=== PATIENT | male | born 1975 | race Caucasian/White ===

== ENCOUNTER 2016-12-22 22:17 | Emergency (ER) | payer BC, OTHER ==
[2016-12-22] MEDS ORDERED: DEXAMETHASONE SOD PHOSPHATE 10 MG/ML VIAL IV ONE (23:28)
[2016-12-22] MEDS ORDERED: ACETAMINOPHEN 500 MG TABLET PO ONE (23:28)
[2016-12-22] MEDS ORDERED: DEXAMETHASONE SOD PHOSPHATE 10 MG/ML VIAL ONE (23:35)
[2016-12-22] MEDS ORDERED: DEXAMETHASONE SOD PHOSPHATE 10 MG/ML VIAL IM ONE (23:40)
[2016-12-22 23:44] VITALS: BP 146/78
--- NOTE | 2016-12-22 23:51 | ERNOTE ---
Back Pain ER HPI Date of Service: 12/22/16 Presenting Symptoms: injury/pain to back Time Seen by Provider: 12/22/16 22:55 Source: patient Exam Limitations: no limitations Immunizations: IMMUNIZATION HX Immunizations Up to Date Yes Allergies/Adverse Reactions: Allergies No Known Allergies Allergy (Unverified 12/22/16 22:35) Home Medications: HOME MEDICATIONS Cyclobenzaprine HCl [Flexeril] 10 mg PO TID PRN #30 tablet 12/22/16 [Last Taken Unknown] Gabapentin [Neurontin] 100 mg PO TID #30 cap 12/22/16 [Last Taken Unknown] Lidocaine [Lidoderm 5%] 1 patch TP DAILY PRN #15 patch 12/22/16 [Last Taken Unknown] Naproxen [Naprosyn] 500 mg PO BID PRN #20 tablet 12/22/16 [Last Taken Unknown] Narrative: 41 year old that has been having lower back pain for many years. Today the pain has increased and he took 1200 mg of Ibuprofen. Denies any weakness, numbness or tingling in the lower extremities. No complaints of urinary retention. Date (Duration): 12/22/16 Time (Timing): 23:55 Timing: Reports: constant Quality/Severity: Reports: moderate Location of pain: Reports: lower back Recent Injury?: Reports: no Possible Precipitating Factor: Reports: none Modifying Factors - (Improves): Reports: other - nothing Modifying Factors - (Worsens): Reports: other - movement Associated Symptoms: Denies: constipation/incontinence, numbess/weakness in legs Prior Treament: Reports: similar symptoms before Review of Systems - Review of Systems Constitutional: Present: no symptoms reported EYE: Present: no symptoms reported ENT: Present: no symptoms reported Respiratory: Present: no symptoms reported Cardiology: Present: no symptoms reported Gastrointestinal/Abdominal: Present: no symptoms reported Genitourinary: Present: no symptoms reported Musculoskeletal: Present: no symptoms reported Skin: Present: no symptoms reported Neurological: Present: no symptoms reported Endocrine: Present: no symptoms reported Hematologic/Lymphatic: Present: no symptoms reported Psych: Present: no symptoms reported - Social History Living Situations: home Psych History: No pertinent hx Smoking Status: Former smoker - Immunizations Immunizations Up to Date: Yes Physical Exam - Physical Exam Narrative: Morbidly obese General Appearance: Present: no apparent distress Head Exam: Present: normal inspection Eye Exam: Normal inspection: bilateral Ears, Nose, Throat: Present: normal ENT inspection Neck: Present: normal inspection Respiratory: Present: no respiratory distress, normal breath sounds Cardiovascular/Chest: Present: regular rate, rhythm Gastrointestinal/Abdominal: Present: nondistended Back Exam: Present: normal inspection, vertebral tenderness - minimal at the L5- S1 area, other Extremity Exam: Present: normal inspection Neurological Exam: Present: alert, oriented, normal mood/affect Skin Exam: Present: normal color ED Progress - Vital Signs Patient's Vital Signs:: I have reviewed the patient's vital signs. Vital Signs: Vital Signs 12/22/16 22:32 Temperature 37 C Pulse Rate 94 Respiratory 14 Rate Blood Pressure 154/84 O2 Sat by Pulse 97 Oximetry - Progress/Reassessment Chief Complaint: Back Pain Progress:: Unchanged Departure Clinical Impression: Chronic back pain - Departure Disposition: Home self-care Condition: Fair Instructions: Back Pain, Adult Print Language: Kenyan Additional Instructions: Loosing weight will help with reducing the back pain. See your doctor. Referrals: Dada Urbina MD [Primary Care Provider] - Prescriptions: Cyclobenzaprine HCl [Flexeril] 10 mg PO TID PRN #30 tablet PRN Reason: Pain Gabapentin [Neurontin] 100 mg PO TID #30 cap Lidocaine [Lidoderm 5%] 1 patch TP DAILY PRN #15 patch PRN Reason: Pain Naproxen [Naprosyn] 500 mg PO BID PRN #20 tablet PRN Reason: Pain
[2016-12-23] MEDS ORDERED: LIDOCAINE 1 PATCH ADH..PATCH TP ONE
== END 2016-12-23 00:15 | disposition home or self-care (01) ==
LOC: ER 22:17
DX: M54.9 Dorsalgia, unspecified (principal); G89.29 Other chronic pain

== ENCOUNTER 2018-11-21 01:09 | Observation (INO) ==
[2018-11-21] MEDS ORDERED: NITROGLYCERIN 0.4 MG/TAB BTL SL ONE (01:22)
[2018-11-21] MEDS ORDERED: ASPIRIN 81 MG TAB.CHEW PO ONE (01:22)
--- NOTE | 2018-11-21 01:26 | ERNOTE ---
Chest Pain/Cardiac HPI Date of Service: 11/21/18 Chief Complaint: Chest Pain Time Seen by Provider: 11/21/18 01:16 Source: patient Immunizations: IMMUNIZATION HX Immunizations Up to Date Yes History of Influenza Vaccine No Hx Pneumococcal Vaccination No Allergies/Adverse Reactions: Allergies No Known Allergies Allergy (Verified 02/17/18 13:33) Home Medications: HOME MEDICATIONS alprazolam 0.25 mg tablet 0.25 mg PO TID PRN tab 10/07/17 [Last Taken Unknown] Narrative: This is a 43-year-old gentleman who comes to the emergency department around 1 AM complaining of left-sided chest pain. The pain is been there for 2 to 3 days . The patient reports he was feeling a bit diaphoretic and clammy earlier today. His pain was bothering to the point where he finally told his and his said he needed to come to the hospital right away. The patient has had no nausea or vomiting. He does say that he is been having a little bit of shortness of breath. The pain comes on or gets worse when he exerts himself and gets better with rest. The patient denies any radiation to the arm neck back or jaw. The patient says he had no coughing or fever. Review of Systems - Review of Systems Constitutional: Present: no symptoms reported EYE: Present: no symptoms reported ENT: Present: no symptoms reported Respiratory: Present: no symptoms reported Cardiology: Present: chest pain Gastrointestinal/Abdominal: Present: no symptoms reported Genitourinary: Present: no symptoms reported Musculoskeletal: Present: no symptoms reported Skin: Present: no symptoms reported Neurological: Present: no symptoms reported Endocrine: Present: no symptoms reported Hematologic/Lymphatic: Present: no symptoms reported Psych: Present: no symptoms reported All Other Systems: All systems neg except as marked Medical History (Updated 10/18/17 @ 11:10 by Dada Urbina MD) LARA (obstructive sleep apnea) (Chronic) Depression (Chronic) Anxiety disorder (Chronic) Allergic rhinitis (Chronic) Obesity Surgical History: Surgical History (Updated 10/07/17 @ 14:03 by Armida Rivas RN) No pertinent past surgical history Family History: Family History (Updated 10/07/17 @ 14:04 by Armida Rivas RN) Brother Hypertension Diabetes Obesity Father Heart disease Diabetes Hypertension CVA (cerebral vascular accident) Mother Alive and well Social History: (Last Reviewed 11/21/18 @ 01:21 by Malka Esteban RN) Social History: current occupational status: employed 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 Service: No Tobacco: Smoking Status: Never smoker Alcohol: alcohol intake: current Substance Use: substance use type: does not use Dietary Habits: caffeine: Yes Physical Exam - Physical Exam General Appearance: Present: wd/wn, alert, no apparent distress Head Exam: Present: normal inspection, no evidence of injury Eye Exam: Normal inspection: bilateral, PERRL: bilateral, EOMI: bilateral Ears, Nose, Throat: Present: normal ENT inspection, normal pharynx Neck: Present: normal inspection, nontender Respiratory: Present: no respiratory distress, normal breath sounds, chest nontender, lungs clear Cardiovascular/Chest: Present: regular rate, rhythm, no murmur Gastrointestinal/Abdominal: Present: normal bowel sounds, nontender, nondistended, soft Back Exam: Present: normal inspection, normal range of motion, no CVA tenderness Extremity Exam: Present: normal inspection, non-tender, normal range of motion, no edema Neurological Exam: Present: alert, oriented, normal mood/affect, no motor/sensory deficits Skin Exam: Present: normal color, warm/dry Lymphatic Exam: Present: no adenopathy Progress - Results and Orders Patient's Lab Results:: I have reviewed the patient's lab results. - Vital Signs Patient's Vital Signs:: I have reviewed the patient's vital signs. Vital Signs: Vital Signs 11/21/18 01:14 Temperature 36.5 C Pulse Rate 104 H Respiratory Rate 18 Blood Pressure 201/87 H O2 Sat by Pulse Oximetry 98 - EKG EKG #1 EKG: NSR EKG read: Interp. by me EKG Comments: EKG demonstrates sinus rhythm ventricular rate of 99, normal axis, normal intervals, no ST elevation, T waves have normal direction and morphology. There may be a biphasic T wave in lead III - X-Ray X-Ray #1 X-Ray: chest Interpretation: Interp. by me X-ray Comments: Mild cardiomegaly no acute cardiopulmonary disease - Progress/Reassessment Chief Complaint: Chest Pain Plan - Plan Plan: Patient's chest pain went away with sublingual nitro we will place him on Nitropaste. His symptoms have been coming and going, only present for a couple of hours this evening, but do seem to come on with exertion and get better with rest. Although his first set of enzymes and EKG are reassuring I think he needs to have repeat enzymes and stress testing. He is excepted this and will stay in the hospital Departure Clinical Impression: Chest pain Qualifiers: Chest pain type: unspecified Qualified Code(s): R07.9 - Chest pain, unspecified - Departure Disposition: Still a patient Condition: Stable Referrals: Dada Urbina MD [Primary Care Provider] -
[2018-11-21 01:42] LABS: Hemoglobin 13.3 gm/dL (13.5-18.0); Mean Cell Volume 86.6 fl (78-100); Mean Corpuscular Hemoglobin 28.8 pg (27-31); Mean Corpuscular Hgb Conc 33.3 g/dl (32-36); Mean Platelet Volume 9.2 fl (8-11.3); Neutrophil # 3.2 K/mm3 (1.3-6.0); Neutrophil % 55.9 % (42-75.0); Platelet Count 222 K/mm3 (150-450); Red Blood Count 4.62 M/mm3 (4.7-6.0); Red Cell Distribution Width 13.3 % (11.5-14.0); White Blood Count 5.7 K/mm3 (4.0-10.5)
[2018-11-21 02:03] LABS: ALT 32 U/L (19-67); Albumin * 3.5 gm/dl (3.4-5.0); Alkaline Phosphatase * 61 U/L (50-170); Anion Gap 16.3 mmol/L (6.8-13.8); BUN/Creatinine Ratio 13.1 (9.0-21.6); Bilirubin, Total 0.2 mg/dL (0.0-1.1); Blood Urea Nitrogen 17 mg/dL (6-23); Ca. Corrected For Albumin 8.5 mg/dL (8.4-10.2); Calcium * 8.4 mg/dL (7.9-10.9); Carbon Dioxide 23.8 mmol/L (24-32.6); Chloride 111 mmol/L (97-106); Glucose * 134 mg/dL (70-110); Potassium 4.1 mmol/L (3.4-4.6); Sodium 147 mmol/L (132-142); Total Protein 6.9 gm/dL (6.2-8.2)
[2018-11-21 02:11] LABS: Troponin I Less than 0.017 ng/mL (0.00-0.10)
[2018-11-21] MEDS ORDERED: NITROGLYCERIN 1 INCH PACKET TD ONE (02:30)
[2018-11-21 02:42] LABS: AST 13 U/L (0-48)
[2018-11-21] MEDS ORDERED: ACETAMINOPHEN 325 MG TABLET PO PRN (07:07)
--- NOTE | 2018-11-21 10:30 | HPDIS ---
Chief Complaint - Chief Complaint Date of Service: 11/21/18 Time of Service: 10:08 Chief Complaint: I had chest pain yesterday History of Present Illness: 43-year-old male with past medical history of general anxiety disorder, depression, obesity, obstructive sleep apnea, was evaluated in our ER due to left-sided retrosternal chest pain accompanied by diaphoresis and mild shortness of breath that started 2 to 3 days ago while in his home. Patient described exertion as aggravating factors and says that his pain improves at rest. He admits to being short of breath lately but has never been diagnosed with any cardiac diseases. Patient is currently doctoring with Dr. Urbina. Medical History (Updated 11/21/18 @ 02:30 by Royce Arboleda MD) LARA (obstructive sleep apnea) (Chronic) Depression (Chronic) Anxiety disorder (Chronic) Allergic rhinitis (Chronic) Obesity Surgical History: Surgical History (Updated 10/07/17 @ 14:03 by Armida Rivas RN) No pertinent past surgical history Family History: Family History (Updated 10/07/17 @ 14:04 by Armida Rivas RN) Brother Hypertension Diabetes Obesity Father Heart disease Diabetes Hypertension CVA (cerebral vascular accident) Mother Alive and well Social History: (Last Reviewed 11/21/18 @ 03:48 by Braxton Faustin RN) Social History: current occupational status: employed 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 Service: No Tobacco: Smoking Status: Never smoker Alcohol: alcohol intake: current Substance Use: substance use type: does not use Dietary Habits: caffeine: Yes Peds Patient Hx - Developmental: No Pertinent Hx Peds Patient Hx - Medical: No Pertinent Hx Peds Patient Hx - Cardiac/Respiratory: No Pertinent Hx Peds Patient Hx - Surgical: No Surgical History Patient History - Cancer: No Hx of Cancer Review Of Systems (GEN) - Review of Systems Generalized/Overall Review: Present: No Symptoms Reported EENTM: Present: No Symptoms Reported Respiratory: Present: Shortness of Breath Cardiac: Present: Chest Pain Abdominal: Present: No Symptoms Reported Genitourinary: Present: No Symptoms Reported Musculoskeletal: Present: No Symptoms Reported Neurological: Present: No Symptoms Reported Skin: Present: No Symptoms Reported Endocrine: Present: No Symptoms Reported Immunizations: IMMUNIZATION HX Immunizations Up to Date Yes History of Influenza Vaccine No Hx Pneumococcal Vaccination No Allergies/Adverse Reactions: Allergies Allergy/AdvReac Type Severity Reaction Status Date / Time No Known Allergies Allergy Verified 11/21/18 03:48 Home Medications: HOME MEDICATIONS alprazolam 0.25 mg tablet 0.25 mg PO TID PRN tab 10/07/17 [Last Taken Unknown] Exam - Exam Vital Signs: Vital Signs - Last Taken Temp 36.8 C 11/21/18 08:40 Pulse 92 11/21/18 08:40 Resp 20 11/21/18 08:40 BP 120/73 11/21/18 08:40 Pulse Ox 95 11/21/18 08:40 Constitutional: Present: Alert, Oriented x3, Cooperative, Well developed, Well nourished, No distress, Morbidly obese ENT Exam: Present: normal ENT inspection, hearing grossly normal, pharynx normal, TMs normal Eye Exam: bilateral eye: normal inspection, PERRL, EOMI Neck: Present: non-tender, full range of motion, supple, normal inspection, trachea midline Back Exam: Present: normal inspection, no CVA tenderness, no vertebral tend erness Breasts: Present: Exam deferred Respiratory: Present: chest non-tender Cardiovascular/Chest: Present: normal peripheral pulses, regular rate, rhythm, no chest tenderness, no edema, no gallop, no JVD, no murmur, no rub Peripheral Pulses: carotid (R): 3+, carotid (L): 3+, femoral (R): 3+, femoral (L): 3+, dorsalis-pedis (R): 3+, dorsalis-pedis (L): 3+ Abdomen: Present: Normal bowel sounds, soft, nontender, nondistended, no rebound tenderness, no hepatospenomegaly, no masses /Rectal: Present: Exam deferred Extremity: Present: normal range of motion, non-tender, normal inspection, no pedal edema, no calf tenderness, normal capillary refill, pelvis stable Skin Exam: Present: normal color, warm/dry, no cyanosis Lymphatic: Present: no adenopathy Neurologic: 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: 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 tested, normal cerebellar test, no motor/sensory deficits, alert, normal mood/affect, oriented x 3 Appearance: Present: appropriate appearance, appropriate insight, neat, no memory impairment Eye contact: Present: cooperative, good eye contact, normal speech Thoughts: Present: normal thought pattern, no apparent hallucination Diagnostic Studies: Abnormal Lab Results 11/21/18 11/21/18 Range/Units 01:40 01:40 RBC 4.62 L (4.7-6.0) M/mm3 Hgb 13.3 L (13.5-18.0) gm/dL Hct 40.0 L (42.0-52.0) % Monocytes % 9.1 H (0.0-9) % Sodium 147 H (132-142) mmol/L Plasma Sodium 148 H (130-142) mmol/L Chloride 111 H (97-106) mmol/L Carbon Dioxide 23.8 L (24-32.6) mmol/L Anion Gap 16.3 H (6.8-13.8) mmol/L Random Glucose 134 H (70-110) mg/dL Laboratory Results WBC 5.7 K/mm3 (4.0-10.5) 11/21/18 01:40 RBC 4.62 M/mm3 (4.7-6.0) L 11/21/18 01:40 Hgb 13.3 gm/dL (13.5-18.0) L 11/21/18 01:40 Hct 40.0 % (42.0-52.0) L 11/21/18 01:40 MCV 86.6 fl (78-100) 11/21/18 01:40 MCH 28.8 pg (27-31) 11/21/18 01:40 MCHC 33.3 g/dl (32-36) 11/21/18 01:40 RDW 13.3 % (11.5-14.0) 11/21/18 01:40 Plt Count 222 K/mm3 (150-450) 11/21/18 01:40 MPV 9.2 fl (8-11.3) 11/21/18 01:40 Immature Gran % (Auto) 0.30 % (0.001-0.429) 11/21/18 01:40 Immature Gran # (Auto) 0.02 K/mm3 (0.000-0.0310) 11/21/18 01:40 55.9 % (42-75.0) 11/21/18 01:40 31.4 % (20-51) 11/21/18 01:40 9.1 % (0.0-9) H 11/21/18 01:40 2.8 % (0.0-3.0) 11/21/18 01:40 0.5 % (0.0-1.0) 11/21/18 01:40 Nucleated RBC % 0.0 k/mm3 (0-1) 11/21/18 01:40 3.2 K/mm3 (1.3-6.0) 11/21/18 01:40 1.80 k/mm3 (1.5-3.5) 11/21/18 01:40 0.5 k/mm3 (0.0-1.0) 11/21/18 01:40 0.2 k/mm3 (0.0-0.7) 11/21/18 01:40 Absolute Basophils 0.0 k/mm3 (0.0-0.1) 11/21/18 01:40 Sodium 147 mmol/L (132-142) H 11/21/18 01:40 148 mmol/L (130-142) H 11/21/18 01:40 Potassium 4.1 mmol/L (3.4-4.6) 11/21/18 01:40 Chloride 111 mmol/L (97-106) H 11/21/18 01:40 Carbon Dioxide 23.8 mmol/L (24-32.6) L 11/21/18 01:40 16.3 mmol/L (6.8-13.8) H 11/21/18 01:40 BUN 17 mg/dL (6-23) 11/21/18 01:40 1.30 mg/dL (0.4-1.4) 11/21/18 01:40 Est GFR (Non-Af Amer) 64 mL/min (60-130) D 11/21/18 01:40 13.1 (9.0-21.6) 11/21/18 01:40 134 mg/dL (70-110) H 11/21/18 01:40 Calcium 8.4 mg/dL (7.9-10.9) 11/21/18 01:40 Calcium Adj for Albumin 8.5 mg/dL (8.4-10.2) 11/21/18 01:40 0.2 mg/dL (0.0-1.1) 11/21/18 01:40 AST 13 U/L (0-48) 11/21/18 01:40 ALT 32 U/L (19-67) 11/21/18 01:40 61 U/L (50-170) 11/21/18 01:40 Less than 0.017 ng/mL (0.00-0.10) 11/21/18 06:45 6.9 gm/dL (6.2-8.2) 11/21/18 01:40 3.5 gm/dl (3.4-5.0) 11/21/18 01:40 Assessment/Plan - Narrative Narrative: Patient was evaluated at bedside and medical chart was reviewed and serial cardiac enzymes were found to be negative, EKG was negative for any abnormalities, and patient denies recurrence of chest pain at the moment. Vitals have remained stable and there has not been any new symptoms during the hospitalization. Given these findings we will discharge patient home with instructions to undergo an stress test on outpatient basis and to follow-up with PCP in 1 week. - Assessment/Plan (1) Ruled out for myocardial infarction Problem: Acute (2) Morbid obesity due to excess calories Problem: Chronic (3) Family history of GA (myocardial infarction) Problem: Chronic (4) Chest pain Problem: Resolved Qualifiers: Chest pain type: unspecified Qualified Code(s): R07.9 - Chest pain, unspecified (1) Ruled out for myocardial infarction Problem: Resolved (2) Morbid obesity due to excess calories Problem: Chronic (3) Family history of GA (myocardial infarction) Problem: Chronic (4) Chest pain Problem: Resolved Qualifiers: Chest pain type: unspecified Qualified Code(s): R07.9 - Chest pain, unspecified Date of Discharge:: 11/21/18 Description of Stay: Patient has been cleared to be discharged home with an order for an outpatient stress test and instructions to follow-up with his PCP in 1 week. He was instructed to return to ER if chest pain recur. Procedures Performed: none Results and Findings: Lab Pending Results 11/21/18 01:40: WBC 5.7, RBC 4.62 L, Hgb 13.3 L, Hct 40.0 L, MCV 86.6, MCH 28.8, MCHC 33.3, RDW 13.3, Plt Count 222, MPV 9.2, Immature Gran % (Auto) 0.30, Immature Gran # (Auto) 0.02, Neutrophils % 55.9, Lymphocytes % 31.4, Monocytes % 9.1 H, Eosinophils % 2.8, Basophils % 0.5, Nucleated RBC % 0.0, Neutrophils # 3.2, Lymphocytes # 1.80, Monocytes # 0.5, Eosinophils # 0.2, Absolute Basophils 0.0 11/21/18 01:40: Sodium 147 H, Plasma Sodium 148 H, Potassium 4.1, Chloride 111 H, Carbon Dioxide 23.8 L, Anion Gap 16.3 H, BUN 17, Creatinine 1.30, Est GFR (Non-Af Amer) 64 D, BUN/Creatinine Ratio 13.1, Random Glucose 134 H, Calcium 8.4, Calcium Adj for Albumin 8.5, Total Bilirubin 0.2, AST 13, ALT 32, Alkaline Phosphatase 61, Troponin I Less than 0.017, Total Protein 6.9, Albumin 3.5 11/21/18 06:45: Troponin I Less than 0.017 Discharge Location: Home Disposition: Home self-care Condition: Stable Face to Face Encounter completed per CMS Guidelines: No Discharge Activity: Activity as tolerated Discharge Diet: Low fat/chol Referrals: Dada Urbina MD [Primary Care Provider] - Complete Home Medications List: Complete Home Medication List: alprazolam 0.25 mg tablet 0.25 mg PO TID PRN tab 10/07/17
[2018-11-21 11:06] VITALS: BP 146/86
== END 2018-11-21 11:05 | disposition home or self-care (01) ==
LOC: ER 01:09 → MS 01:09
PROVIDERS: ADMIT Family Medicine; ATTEND Family Medicine
CPT/HCPCS: 36415; 71010; 71045; 80053; 84484; 85025; 93005; 99285